=== PATIENT | female | born 1990 | race Caucasian/White ===

== ENCOUNTER 2017-12-29 01:12 | Observation (INO) ==
[2017-12-29] MEDS ORDERED: Naloxone 0.4 MG/ML INJ IVP PRN (03:51)
[2017-12-29] MEDS ORDERED: Ondansetron 4 MG/2 ML VIAL IVP PRN (03:51)
[2017-12-29] MEDS ORDERED: MOM Conc 10 ML UD.LIQ PO PRN (03:51)
--- NOTE | 2017-12-29 04:44 | Internal Med History&Physical ---
Date of Encounter: 12/29/17 Time of Encounter: 04:00 Assessment and Plan (1) Acute right-sided weakness Current visit: Yes Status: Acute Will place the pt into Tele for observation Her Rt side weakness seems more like conversion disorder however with her significant FH of CVA at early age ( brother had CVA in 30's ) so definitely need to r/o CVA Reviewed her CT of Head from other ER- no acute ICH noticed Reviewed her labs - WBC 7.9 Hb 13.7, Na; 138 K+- 3.7 BUN/Cr - 16/1.03 UDS - negative will start her on ASA 81mg will get a MRI of Brain Check FLP in AM PT / OT eval ordered (2) Conversion disorder Current visit: Yes Status: Acute She does mention about los of stress at home Resumed her home psych meds If MRI of Head - negative, she needs to be evaluated by behavioral therapy coordinator as an out pt (3) Anxiety Current visit: Yes Status: Acute resume home meds - Zoloft (4) Depression Current visit: Yes Status: Acute Qualifiers: Depression Type: other depression Qualified Code(s): F32.89 - Other specified depressive episodes Internal Medicine - H&P: HPI Chief complaint: Rt side weakness Admitted From: Emergency Dept Plans for Post Hospital Care: Home History of present illness: Ms. Velásquez is a 27 year old female with known PMH of Anxiety, Depression who presented to [facility] ER with Rt face numbness started at 9.30PM last night while she was driving back home from [place] after visiting her brother. Few minutes later pt noticed weakness in Rt arm and Rt leg, she was unable press gas , however she managed to go her father's home. Pt did mention that initially she thought it was because of anxiety / stress, however since her symptoms persisted for longer duration she went to [facility] ER. There she had further work up done, CT of head negative for any acute ICH, and her symptoms also non consistent with stroke, they reached out to [facility] neurologist, who did not suggest any tPA. Pt was transferred here for further work up. When I examined her she is still c/o Rt arm and leg weakness, however Rt face numbness improved. Past Med Surg Social Fam HX - Past Medical History Medical history: other Psychiatric history: anxiety, depression - Past Surgical History Surgical History: other - Social History Smoking Status: Former smoker Smokeless Tobacco Status: No Alcohol use: none Drug use: none - Family History Mother Living Status: Still Living Hx Family Cardiac Disorders: Yes (HTN) Hx Family Neurologic Disorders: Yes (brain aneursym) Father Living Status: Still Living Hx Family Cardiac Disorders: Yes (CHF, HTN) Hx Family Endocrine Disorder: Yes (DM) Hx Family Neurologic Disorders: Yes (CVA) Brother Age: 34 Hx Family Neurologic Disorders: Yes (TIA, CVA) Internal Medicine - H&P: Meds Sertraline [Zoloft] 50 mg PO DAILY 12/29/17 [History] Spironolactone [Aldactone] 100 mg PO DAILY 12/29/17 [History] clonazePAM [Clonazepam] 0.5 mg PO BID 12/29/17 [History] 3 Allergy/AdvReac Type Severity Reaction Status Date / Time Amoxicillin Allergy Hives Verified 03/14/17 18:42 Penicillins Allergy Anaphylaxis Verified 03/14/17 18:42 All Systems PM: A 10-system review of systems was performed and is negative for pertinent findings except as documented above in the HPI. Review of systems: All the systems are reviewed everything is benign except the systems and symptoms I mentioned in the history of present illness - Constitutional Vitals: Temp Pulse Resp BP Pulse Ox 98.3 F 64 16 110/69 99 12/29/17 04:03 12/29/17 04:03 12/29/17 04:03 12/29/17 04:03 12/29/17 04:03 General appearance: Present: cooperative, A&O X 3, answers questions appropriately - Head Head exam: Present: atraumatic, normal inspection - Neck Neck exam general surgery: Present: supple - Respiratory Respiratory exam: Present: CTAB. Absent: rales, respiratory distress, rhonchi, wheezes - Cardiovascular Cardiovascular exam: Present: RRR, +S1, +S2. Absent: diastolic murmur, gallop, rubs, systolic murmur - GI/Abdominal GI/Abdominal exam: Present: soft. Absent: rebound, rigid, tenderness - Extremities Exam Extremities exam: Absent: calf tenderness, pedal edema, tenderness - Back Exam Back exam: Absent: CVA tenderness (L), CVA tenderness (R) - Neurological Exam Neurological exam: Present: alert, CN II-XII intact, motor sensory deficit (She does have significant weakness in Rt arm and Rt leg..however her physical exam findings are inconsistent..), oriented X3. Absent: facial droop, speech deficit - Psychiatric Psychiatric exam: Present: depressed - Skin Skin exam: Absent: rash
[2017-12-29 05:26] LABS: Basophils # 0.1 K/mcL (0.0-0.2); Basophils % 0.7 %; Eosinophils # 0.3 K/mcL (0.0-0.6); Eosinophils % 3.8 %; Hematocrit 37.6 % (35.3-44.9); Hemoglobin 13.3 g/dL (11.5-15.4); Immature Granulocytes % 0.6 % (0-4); Lymphocytes # 2.6 K/mcL (0.6-4.6); Lymphocytes % 37.7 %; Mean Corpuscular HGB Conc 35.4 g/dL (31.6-35.5); Mean Corpuscular Hemoglobin 30.6 pg (28.0-33.3); Mean Corpuscular Volume 86.4 fL (83.0-100.0); Monocytes # 0.5 K/mcL (0.0-1.3); Monocytes % 7.4 %; Neutrophils # 3.4 K/mcL (1.6-8.9); Platelet Count 256 K/mcL (140-400); Red Blood Count 4.35 M/mcL (3.82-4.97); Red Cell Distribution Width 12.6 % (11.5-14.5); Segmented Neutrophils % 49.8 %
[2017-12-29 05:52] LABS: BUN/Creatinine Ratio 18 (6-26); Blood Urea Nitrogen 14 mg/dL (6-20); Calcium 9.1 mg/dL (8.6-10.3); Carbon Dioxide 24 mEq/L (23-29); Chloride 108 mEq/L (98-107); Glucose 90 mg/dL (70-105); Osmolality,Calculated 288 (280-300); Potassium 3.9 mEq/L (3.5-5.1); Sodium 139 mEq/L (136-145); eGFR For African Americans > 60 (> 60); eGFR For Non-African Americans > 60 (> 60)
[2017-12-29] MEDS: Aspirin 81 MG TAB.CHEW PO SCH (08:38)
[2017-12-29] MEDS: Acetaminophen 325 MG TABLET PO PRN ×2 (10:02→20:29)
--- NOTE | 2017-12-29 17:29 | Event Note ---
Date of Encounter: 12/29/17 Time of Encounter: 17:25 Patient had a brain MRI secondary to right-sided weakness and numbness. Also dizziness and headache. Acute symptoms for 1 day duration, MRI report states no acute brain parenchymal abnormality, CT of the head from emergency room with no abnormality test is negative Lab work within normal limits except for chloride of 108 Check lipid panel in the a.m. PT/OT is recommending repeat rehabilitation as the patient will not lift her right leg or her arm She states she cannot control her arm but when dropped over her face she slowly lowers it so not to hit herself in the nose, she is also holding her foot up when she states she cannot control her leg. She is alert and oriented. She is not set up in community with a mental health clinic or psychiatrist We will observe overnight
[2017-12-29] MEDS: clonazePAM 0.5 MG TABLET PO SCH (22:36)
[2017-12-30] MEDS: clonazePAM 0.5 MG TABLET PO SCH ×2 (09:05→20:46)
[2017-12-30] MEDS: Aspirin 81 MG TAB.CHEW PO SCH (09:05)
[2017-12-30] MEDS: Acetaminophen 325 MG TABLET PO PRN ×2 (09:07→20:46)
--- NOTE | 2017-12-30 11:15 | Internal Med Progress Note ---
<Ricardo Hernandez - Last Filed: 12/30/17 11:12> Date of Encounter: 12/30/17 Time of Encounter: 11:13 - Assessment and plan (1) Acute right-sided weakness Current Visit: Yes Status: Acute Assessment and plan: 27-year-old female with no significant history of clotting or previous strokelike symptoms presented with right-sided weakness and right-sided facial weakness. Neurologic exam is not consistent with strokelike symptoms. CT of head negative for any acute ICH, and her symptoms also non consistent with stroke, they reached out to [facility] neurologist, who did not suggest any tPA. MRI negative for any acute parenchymal abnormalities. - Likelihood of stroke is lower compared to conversion disorder versus underlying psychologic involvement. Plan: - Physical therapy/occupational therapy - Speech for swallow eval - Psychiatry consult (2) Conversion disorder Current Visit: Yes Status: Acute Assessment and plan: Or concerning for conversion disorder. Patient has significant stressors at home. - Continue home psych medications - MRI of the head negative - We will need psychiatry evaluation. - Subjective Interval history: Ms. Velásquez 27 -year-old female seen and evaluated patient bedside is 20. She is alert awake interactive and sitting up at bedside to work with physical therapy. She denies any pain but does have tingling into her right upper and lower extremity and says that she feels weak on her right side. She states that she started having right-sided facial weakness and numbness while driving that progressed into right lower extremity and right upper extremity weakness and numbness and tingling. She denies any significant medical history of clotting, denies smoking, or current control. She does have 1 daughter and had one miscarriage several months ago. She denies any new changes since her initial event the other day. - Constitutional Vitals: Temp Pulse Resp BP Pulse Ox 97.6 F 62 18 103/69 97 12/30/17 07:17 12/30/17 07:17 12/30/17 07:17 12/30/17 07:17 12/30/17 07:17 General appearance: Present: cooperative, A&O X 3, answers questions appropriately Exam: General: Patient alert, awake, oriented 3, interactive, in no acute distress HEENT: Normocephalic, atraumatic, pupils equal reactive to light, nasal cavity patent and open septum median position, oral mucosa moist, uvula midline, neck supple trachea midline no palpable lymphadenopathy, no thyromegaly. Chest: Symmetric bilateral correlating with respiratory effort, effort nonlabored. Cardiac: Regular rate and rhythm, positive S1 and S2. no bruits appreciated bilateral carotids, Radial pulses 2+ bilateral, posterior tibial and dorsal pedal pulses 2+ bilateral. Respiratory: Clear to auscultation all lung srivastava Abdomen: Soft, nontender, positive bowel sounds, no palpable masses appreciated on examination Extremities: Symmetric bilateral, bilateral lower extremities without erythema or edema . Patient has full range of motion movements with 5 out of 5 muscle strength in left upper and left lower extremity, patient's is demonstrating weakness in her right upper extremity and right lower extremity bypass the exam is not consistent. Neurologic: No focal deficits appreciated on examination. Cranial nerves II through XII intact, reflexes in biceps triceps and patellar and Achilles 2/4 bl. Face symmetric. Internal Medicine: Result - Labs CBC & Chem 7: 12/29/17 04:49 12/29/17 04:49 - Impressions Impressions Brain MRI 12/29/17 09:08 IMPRESSION: No acute brain parenchymal abnormality. D/ / 12/29/2017 14:07:26 Shawna Dhaliwal MD / [facility] Interpreting Provider: Shawna Dhaliwal MD Consult Discharge Plan - Plan Referrals: NONE,PCP [Primary Care Provider] - <Austin Le - Last Filed: 12/30/17 18:47> Date of Encounter: 12/30/17 - Assessment and plan (1) Conversion disorder with motor symptom or deficit Current Visit: Yes Status: Suspected (2) Depression Current Visit: Yes Status: Acute Qualifiers: Depression Type: other depression Qualified Code(s): F32.89 - Other specified depressive episodes (3) Acute right-sided weakness Current Visit: Yes Status: Acute (4) Anxiety Current Visit: Yes Status: Acute - Constitutional Vitals: Temp Pulse Resp BP Pulse Ox 98.6 F 70 16 113/75 97 12/30/17 15:27 12/30/17 15:27 12/30/17 15:27 12/30/17 15:27 12/30/17 15:27 Internal Medicine: Result - Labs CBC & Chem 7: 12/29/17 04:49 12/29/17 04:49 - Attending Attestation I examined this patient and my medical decision-making was reviewed with the Resident Physician on 12/30/17. I agree with the documented findings, disposition and treatment plan as described except to the extent set forth below. Ms Andrews is currently in observation for R side weakness. Rehab has been recommended. Ms Velásquez is feeling OK. No new issues. No fever or chills. Exam alert Comfortable Mucus membranes dry Heart reg Lungs clear I/P 1. R side weakness 2. Conversion Further diagnoses and plan as above.
[2017-12-30] MEDS ORDERED: Saline Nasal Spray 44 ML BOTTLE NS PRN (21:44)
[2017-12-31] MEDS: clonazePAM 0.5 MG TABLET PO SCH ×2 (08:36→20:20)
[2017-12-31] MEDS: Aspirin 81 MG TAB.CHEW PO SCH (08:36)
--- NOTE | 2017-12-31 08:41 | Internal Med Progress Note ---
<Ricardo Hernandez - Last Filed: 12/31/17 10:24> Date of Encounter: 12/31/17 Time of Encounter: 08:41 - Assessment and plan (1) Acute right-sided weakness Current Visit: Yes Status: Acute Assessment and plan: 27-year-old female with no significant history of clotting or previous strokelike symptoms presented with right-sided weakness and right-sided facial weakness. Neurologic exam is not consistent with strokelike symptoms. CT of head negative for any acute ICH, and her symptoms also non consistent with stroke, they reached out to [facility] neurologist, who did not suggest any tPA. MRI negative for any acute parenchymal abnormalities. - Likelihood of stroke is lower compared to conversion disorder versus underlying psychologic involvement. 12/31: No change in symptoms, patient says she feels like she has more strength in her right arm. She does discuss numerous stresses including her sick brother and her miscarriage in August. Now she is concerned she will lose her job here at [employer] since she has been employed less than a year. Plan: - Physical therapy/occupational therapy - Speech for swallow evaluation - Psychiatry in the outpatient setting. - PT recommends inpatient rehab (2) Conversion disorder Current Visit: Yes Status: Suspected Assessment and plan: Exam and work up concerning for conversion disorder. Patient has significant stresses at home that may be contributing to her current situation. - Continue home psych medications - MRI of the head negative - We will need psychiatry evaluation. - Subjective Interval history: Ms. Velásquez 27 -year-old female seen and evaluated patient bedside is 20. She is alert awake interactive in no acute distress eating breakfast with her left hand. She says that the weakness in her right upper extremity is slightly improved today but not back to her baseline. She opened up about multiple stress factors in her life that may be contributing to her current situation. She is concerned about loosing her job and how her new symptoms will affect her ability to be functional at home. - Constitutional Vitals: Temp Pulse Resp BP Pulse Ox 97.9 F 65 16 110/69 97 12/31/17 07:13 12/31/17 07:13 12/31/17 07:13 12/31/17 07:13 12/31/17 07:13 General appearance: Present: cooperative, A&O X 3, answers questions appropriately Exam: General: Patient alert, awake, oriented 3, interactive, in no acute distress HEENT: Normocephalic, atraumatic, pupils equal reactive to light, nasal cavity patent and open septum median position, oral mucosa moist, uvula midline, neck supple trachea midline no palpable lymphadenopathy, no thyromegaly. Chest: Symmetric bilateral correlating with respiratory effort, effort nonlabored. Cardiac: Regular rate and rhythm, positive S1 and S2. no bruits appreciated bilateral carotids, Radial pulses 2+ bilateral, posterior tibial and dorsal pedal pulses 2+ bilateral. Respiratory: Clear to auscultation all lung srivastava Abdomen: Soft, nontender, positive bowel sounds, no palpable masses appreciated on examination Extremities: Symmetric bilateral, bilateral lower extremities without erythema or edema . Patient has full range of motion movements with 5 out of 5 muscle strength in left upper and left lower extremity, patient's is demonstrating weakness in her right upper extremity and right lower extremity bypass the exam is not consistent. Neurologic: No focal deficits appreciated on examination. Cranial nerves II through XII intact, reflexes in biceps triceps and patellar and Achilles 2/4 bl. Face symmetric. Internal Medicine: Result - Labs CBC & Chem 7: 12/29/17 04:49 12/29/17 04:49 Consult Discharge Plan - Plan Referrals: NONE,PCP [Primary Care Provider] - <Austin Le - Last Filed: 12/31/17 17:30> Date of Encounter: 12/31/17 - Assessment and plan (1) Conversion disorder with motor symptom or deficit Current Visit: Yes Status: Suspected (2) Acute right-sided weakness Current Visit: Yes Status: Acute (3) Depression Current Visit: Yes Status: Acute Qualifiers: Depression Type: other depression Qualified Code(s): F32.89 - Other specified depressive episodes (4) Anxiety Current Visit: Yes Status: Chronic - Constitutional Vitals: Temp Pulse Resp BP Pulse Ox 98.2 F 87 17 131/83 97 12/31/17 15:30 12/31/17 15:30 12/31/17 15:30 12/31/17 15:30 12/31/17 15:30 Internal Medicine: Result - Labs CBC & Chem 7: 12/29/17 04:49 12/29/17 04:49 - Attending Attestation I examined this patient and my medical decision-making was reviewed with the Resident Physician on 2/11/18. I agree with the documented findings, disposition and treatment plan as described except to the extent set forth below. Ms Velásquez is currently admitted for acute R side weakness. Rehab has been recommended. Exam Alert. Comfortable Mucus membranes dry Heart reg No wheeze abd soft Still with decreased movement R arm and leg I/P 1. R side weakness - check C spine MRI 2. Probable conversion disorder Further diagnoses and plan as above.
[2017-12-31] MEDS: Acetaminophen 325 MG TABLET PO PRN ×2 (10:58→20:20)
[2018-01-01] MEDS: clonazePAM 0.5 MG TABLET PO SCH ×2 (11:03→20:49)
[2018-01-01] MEDS: Aspirin 81 MG TAB.CHEW PO SCH (11:03)
[2018-01-01] MEDS: Acetaminophen 325 MG TABLET PO PRN ×2 (11:07→20:49)
--- NOTE | 2018-01-01 13:51 | Discharge Summary ---
<Irwin Tate - Last Filed: 01/01/18 13:47> Date of Encounter: 01/01/18 Time of Encounter: 13:47 - Discharge Diagnosis (1) Conversion disorder Priority: Primary Status: Suspected (2) Anxiety Priority: Secondary Status: Chronic (3) Depression Priority: Secondary Status: Chronic Qualifiers: Depression Type: other depression Qualified Code(s): F32.89 - Other specified depressive episodes - Discharge Medications Prescriptions: clonazePAM [Clonazepam] 0.5 mg PO BID 5 Days #10 tab.rapdis Home Medications: Sertraline [Zoloft] 50 mg PO DAILY 12/29/17 [History] Spironolactone [Aldactone] 100 mg PO DAILY 12/29/17 [History] clonazePAM [Clonazepam] 0.5 mg PO BID 5 Days #10 tab.rapdis 01/01/18 [Rx] Allergies/Adverse Reactions: 3 Allergy/AdvReac Type Severity Reaction Status Date / Time Amoxicillin Allergy Hives Verified 03/14/17 18:42 Penicillins Allergy Anaphylaxis Verified 03/14/17 18:42 promethazine [From Phenergan] AdvReac See Verified 12/29/17 05:45 Comments Procedures/tests Complete & Pending: Procedures Performed prior 72 hours Category Date Time Status MR cervical spine wo con [MR] Routine MRI 01/01/18 11:10 Draft Date of admission: 12/29/17 03:48 Primary care physician: PCP NONE Consults: 12/29/17 03:48 Consult to Occupational Therapy [CONS] Routine Comment: Evaluate, develop and implement POC Reason for Consult: Rt side weakness Consult to Physical Therapy [CONS] Routine Comment: Evaluate, develop and implement POC Reason for Consult: Rt side weakness 12/29/17 14:32 Consult to Cell Technician [CONS] Routine Reason for SW Consult: PT/OT recommend inpt rehab/swing Discharging clinician: Irwin Tate Anticipated date of discharge: 01/01/18 - Patient Status Disposition: Home, Self-Care Functional capacity at discharge: uses cane/walker Overall status at discharge: patient is progressing back to baseline - Discharge Instructions Follow Up With: NONE,PCP [Primary Care Provider] - (within 1 week) Psychiatry [facility] [Provider Group] (as soon as possible) Additional Instructions: Please follow up with a PCP within one week. Please follow up with psychiatry as scheduled. Please resume your home medications. Please followed participate in rehabilitation as instructed by physical therapy. Please return for any new or worsening symptoms. - Diet and Activity Activity: as per physical therapy, resume usual activities as tolerated Diet: advance to your usual diet Interval History: Patient seen and examined at the bedside. Patient reports continued right arm weakness and right leg weakness. She feels that these are stable, slowly getting worse but no numbness or any getting better. At the time of my exam she was tearful about her current situation and what may happen to her job and her children. She has no new complaints at this time. Hospital course: Ms. Velásquez is a 27 year old female with history of anxiety and depression presents with right arm and leg weakness. The symptoms were acute onset nature. Patient underwent brain MRI as well as cervical spine MRI that were negative for any acute or chronic findings and explain the patient's symptoms. Patient has underlying depression and anxiety and given her negative workup this was felt to be related to conversion disorder. Patient was evaluated by physical therapy who recommended swing bed/inpatient rehabilitation. She will be discharged as stable condition with psychiatry follow-up. - Time Spent with Patient Total time spent providing and/or coordinating discharge services: - Constitutional Vitals: Temp Pulse Resp BP Pulse Ox 97.3 F L 80 17 100/65 98 01/01/18 12:23 01/01/18 12:23 01/01/18 12:23 01/01/18 12:23 01/01/18 12:23 General appearance: Present: cooperative, A&O X 3, answers questions appropriately - Respiratory Respiratory exam: Present: CTAB. Absent: rales, rhonchi, wheezes - Cardiovascular Cardiovascular exam: Present: RRR. Absent: gallop, rubs, systolic murmur - Neurological Exam Additional comments: 3 out of 5 strength in the right upper and right lower extremity. Right upper and lower extremity tingling present - Psychiatric Psychiatric exam: Present: depressed (Tearful) <Austin Le - Last Filed: 01/01/18 17:07> Date of Encounter: 01/01/18 - Discharge Diagnosis (1) Conversion disorder with motor symptom or deficit Priority: Primary Status: Suspected (2) Acute right-sided weakness Priority: Secondary Status: Acute (3) Depression Status: Chronic Qualifiers: Depression Type: other depression Qualified Code(s): F32.89 - Other specified depressive episodes (4) Anxiety Status: Chronic Procedures/tests Complete & Pending: Procedures Performed prior 72 hours Category Date Time Status MR cervical spine wo con [MR] Routine MRI 01/01/18 11:10 Completed Date of admission: 12/29/17 03:48 Primary care physician: PCP NONE Consults: 12/29/17 03:48 Consult to Occupational Therapy [CONS] Routine Comment: Evaluate, develop and implement POC Reason for Consult: Rt side weakness Consult to Physical Therapy [CONS] Routine Comment: Evaluate, develop and implement POC Reason for Consult: Rt side weakness 12/29/17 14:32 Consult to Cell Technician [CONS] Routine Reason for SW Consult: PT/OT recommend inpt rehab/swing Hospital course: Ms. Velásquez is a 27 year old female - Time Spent with Patient Total time spent providing and/or coordinating discharge services: 29min - Constitutional Vitals: Temp Pulse Resp BP Pulse Ox 98.3 F 78 18 118/72 99 01/01/18 16:30 01/01/18 16:30 01/01/18 16:30 01/01/18 16:30 01/01/18 16:30 - Attending Attestation I examined this patient and my medical decision-making was reviewed with the Resident Physician on 01/01/18. I agree with the documented findings, disposition and treatment plan as described except to the extent set forth below. Ms Velásquez has been admitted for R arm and R leg weakness. MRI of head and C spine are negative. Further neuro workup also negative. Weakness persists. Rehab/swing bed recommended. Exam alert Comfortable Mucus membranes dry Heart reg No wheeze R side persistent weak. Plan D/C to rehab when arranged.
--- NOTE | 2018-01-01 17:09 | Physician Discharge Referral ---
ExtendedCare Referral Info Provider in Charge after Transfer: PCP Institutional Level of Care: Skilled - Diagnosis (1) Conversion disorder with motor symptom or deficit Priority: Primary Status: Suspected (2) Acute right-sided weakness Priority: Primary Status: Acute (3) Depression Priority: Secondary Status: Chronic (4) Anxiety Priority: Secondary Status: Chronic Expected Duration of Placement: Less than 30 days Prognosis: Good Aware of Diagnosis: Patient Aware of Prognosis: Patient - Transfer Medications Prescriptions: clonazePAM [Clonazepam] 0.5 mg PO BID 5 Days #10 tab.rapdis Home Medications: Sertraline [Zoloft] 50 mg PO DAILY 12/29/17 [History] Spironolactone [Aldactone] 100 mg PO DAILY 12/29/17 [History] clonazePAM [Clonazepam] 0.5 mg PO BID 5 Days #10 tab.rapdis 01/01/18 [Rx] Allergies/Adverse Reactions: 3 Allergy/AdvReac Type Severity Reaction Status Date / Time Amoxicillin Allergy Hives Verified 03/14/17 18:42 Penicillins Allergy Anaphylaxis Verified 03/14/17 18:42 promethazine [From Phenergan] AdvReac See Verified 12/29/17 05:45 Comments - Respiratory Orders Smoking Cessation: Smoking cessation has been advised. For more information, call the [place] Tobacco Quit Line at 2-496-ABLFNOW. - Lab Orders Lab Orders: 2 Step Mantoux Test per State regulation - Ancillary Orders May use pressure relief devices daily prn, May consult with Dentist, Computer Operations Analyst, Direct Support Professional PRN - Advance Directives Code Status: Full Code - Mobility Orders Ambulate - Rehabiliation Orders Rehab Orders: Evaluation for Physical Therapy, Evaluation for Occupational Therapy - Treatments Skin tear care topically daily PRN per policy, May check for fecal impaction rectally daily PRN, Fleet enema rectally every other day PRN cleansing purposes - Diet Orders Regular CERTIFICATION: I certify that the transfer of the above named patient to an Extended Care Facility is necessary for the continuing treatment of the diagnosis listed. The above information is true and accurate reflection of patient's current condition. Confidential - Redisclosure prohibited without a patient's written consent.
[2018-01-02] MEDS: *HR* HYDROcodone/Acet 5/325 mg TABLET PO PRN ×3 (00:04→21:23)
[2018-01-02] MEDS: Aspirin 81 MG TAB.CHEW PO SCH (09:40)
[2018-01-02] MEDS: clonazePAM 0.5 MG TABLET PO SCH ×2 (09:40→21:23)
[2018-01-02] MEDS: Acetaminophen 325 MG TABLET PO PRN (09:58)
--- NOTE | 2018-01-02 12:43 | Internal Med Progress Note ---
Date of Encounter: 01/02/18 Time of Encounter: 12:40 - Assessment and plan (1) Acute right-sided weakness Current Visit: Yes Status: Acute Assessment and plan: Patient is recommended for inpatient rehabilitation presently waiting for placement at [facility] in [place]. Continue with physical therapy and occupational therapy-vision feels she has more strength in her right arm continues to have weakness in right lower leg. No past significant history of clotting or previous strokes she presented with right-sided weakness right-sided facial weakness. Neurological exam is not consistent with stroke symptoms CT of head was negative for any acute ICH ER did speak with [facility] neurologist who did not suggest a TPA MRI was negative for any abnormalities. Patient has been under a lot of stress including a recent miscarriage sick brother-suspect this is more conversion disorder most likely stroke Patiently to follow up with psychiatry as outpatient (2) Conversion disorder Current Visit: Yes Status: Suspected Assessment and plan: She has had significant stressors at home which may be contributing to her current situation We will continue with home psych medications MRI of head is negative Continue with outpatient psych evaluation follow-up - Time Spent With Patient less than 15 minutes - Subjective Interval history: Presently denies any pain or discomfort, she continues to have numbness and tingling to R arm however she feels it has improve some. Also cont to have weakness to R side,feels that her R arm has improved in strength. She mainly use L hand to retrieve items. Awaiting acceptance to [facility] in [place]. Discussed follow up with psych as outpatient which she agreed, she expressed that she has had depression for sometime and feels she would benefit from psych counseling - Constitutional Vitals: Temp Pulse Resp BP Pulse Ox 98.1 F 66 18 115/73 97 01/02/18 11:28 01/02/18 11:28 01/02/18 11:28 01/02/18 11:28 01/02/18 11:28 General appearance: Present: cooperative, A&O X 3, answers questions appropriately - Head Head exam: Present: atraumatic, normocephalic - Eye Eye exam: Present: PERRL, conjuntiva pink, sclera anicteric Pupils: Present: PERRL - Neck Neck exam general surgery: Present: supple, trachea midline. Absent: lymphadenopathy - Respiratory Respiratory exam: Present: CTAB. Absent: accessory muscle use, rales, rhonchi, wheezes - Cardiovascular Cardiovascular exam: Present: RRR, +S1, +S2. Absent: diastolic murmur, gallop, rubs, systolic murmur - GI/Abdominal GI/Abdominal exam: Present: normal bowel sounds, soft, no peritoneal signs. Absent: distended, tenderness - Extremities Exam Extremities exam: Present: warm, radial pulses palpable and symmetrical. Absent : calf tenderness, cyanotic, pedal edema - Expanded Upper Extremities Exam Hand wrist exam: Present: swelling - Neurological Exam Neurological exam: Present: CN II-XII intact, oriented X3, no focal deficits. Absent: pronater drift, facial droop, speech deficit Additional comments: R arm and hand weakness 3/5 R leg weakness 3/5 - Skin Skin exam: Present: dry, intact Internal Medicine: Result - Labs CBC & Chem 7: 12/29/17 04:49 12/29/17 04:49 - Impressions Impressions Cervical Spine MRI 01/01/18 11:10 IMPRESSION: Normal MRI of the cervical spine without findings to explain the patient's right upper extremity tingling and weakness. D/ / 01/01/2018 11:03:25 Bobby Gutierrez MD / bcarter Interpreting Provider: Bobby Gutierrez MD Consult Discharge Plan - Plan Additional Instructions: Please follow up with a PCP within one week. Please follow up with psychiatry as scheduled. Please resume your home medications. Please followed participate in rehabilitation as instructed by physical therapy. Please return for any new or worsening symptoms. Referrals: Psychiatry [facility] [Provider Group] (as soon as possible) NONE,PCP [Primary Care Provider] - (within 1 week) Prescriptions: clonazePAM [Clonazepam] 0.5 mg PO BID 5 Days #10 tab.rapdis
[2018-01-03] MEDS: Aspirin 81 MG TAB.CHEW PO SCH (08:41)
[2018-01-03] MEDS: clonazePAM 0.5 MG TABLET PO SCH ×2 (08:41→20:56)
--- NOTE | 2018-01-03 09:47 | Internal Med Progress Note ---
Date of Encounter: 01/03/18 Time of Encounter: 09:46 - Assessment and plan (1) Acute right-sided weakness Current Visit: Yes Status: Acute Assessment and plan: Patient is recommended for inpatient rehabilitation presently waiting for placement at [facility] in [place]. Continue with physical therapy and occupational therapy- Patiently to follow up with psychiatry as outpatient-suspect conversion disorder (2) Conversion disorder Current Visit: Yes Status: Suspected Assessment and plan: She has had significant stressors at home which may be contributing to her current situation We will continue with home psych medications MRI of head is negative Continue with outpatient psych evaluation follow-up - Subjective Interval history: Presently denies any pain or discomfort, she continues to have numbness and tingling to R arm however she feels it has improve some. Awaiting acceptance to [facility] in [place]. - Constitutional Vitals: Temp Pulse Resp BP Pulse Ox 97.9 F 68 16 108/72 98 01/03/18 07:14 01/03/18 07:14 01/03/18 07:14 01/03/18 07:14 01/03/18 07:14 General appearance: Present: cooperative, A&O X 3, answers questions appropriately - Head Head exam: Present: atraumatic, normocephalic - Eye Eye exam: Present: PERRL, conjuntiva pink, sclera anicteric Pupils: Present: PERRL - Neck Neck exam general surgery: Present: supple, trachea midline. Absent: lymphadenopathy - Respiratory Respiratory exam: Present: CTAB. Absent: accessory muscle use, rales, rhonchi, wheezes - Cardiovascular Cardiovascular exam: Present: RRR, +S1, +S2. Absent: diastolic murmur, gallop, rubs, systolic murmur - GI/Abdominal GI/Abdominal exam: Present: normal bowel sounds, soft, no peritoneal signs. Absent: distended, tenderness - Extremities Exam Extremities exam: Present: warm, radial pulses palpable and symmetrical. Absent : calf tenderness, cyanotic, pedal edema - Neurological Exam Neurological exam: Present: CN II-XII intact, oriented X3, no focal deficits. Absent: pronater drift, facial droop, speech deficit Additional comments: weakness to R arm and R leg - Skin Skin exam: Present: dry, intact Internal Medicine: Result - Labs CBC & Chem 7: 12/29/17 04:49 12/29/17 04:49 Consult Discharge Plan - Plan Additional Instructions: Please follow up with a PCP within one week. Please follow up with psychiatry as scheduled. Please resume your home medications. Please followed participate in rehabilitation as instructed by physical therapy. Please return for any new or worsening symptoms. Referrals: Psychiatry [facility] [Provider Group] (as soon as possible) NONE,PCP [Primary Care Provider] - (within 1 week) Prescriptions: clonazePAM [Clonazepam] 0.5 mg PO BID 5 Days #10 tab.rapdis
[2018-01-03] MEDS: *HR* HYDROcodone/Acet 5/325 mg TABLET PO PRN (20:56)
[2018-01-04] MEDS: clonazePAM 0.5 MG TABLET PO SCH ×2 (09:31→20:44)
[2018-01-04] MEDS: Aspirin 81 MG TAB.CHEW PO SCH (09:31)
[2018-01-04] MEDS: Acetaminophen 325 MG TABLET PO PRN ×2 (09:33→15:35)
--- NOTE | 2018-01-04 09:46 | Internal Med Progress Note ---
Date of Encounter: 01/04/18 Time of Encounter: 09:45 - Assessment and plan (1) Acute right-sided weakness Current Visit: Yes Status: Acute Assessment and plan: Patient is recommended for inpatient rehabilitation presently waiting for placement at [facility] in [place]. Continue with physical therapy and occupational therapy- Patient to follow up with psychiatry as outpatient-suspect conversion disorder (2) Conversion disorder Current Visit: Yes Status: Suspected Assessment and plan: She has had significant stressors at home which may be contributing to her current situation We will continue with home psych medications MRI of head is negative Continue with outpatient psych evaluation follow-up - Time Spent With Patient less than 15 minutes - Subjective Interval history: Presently denies any pain or discomfort, she continues to have numbness and tingling to R arm however she feels it has improve some. Awaiting for insurance acceptance to [facility] in [place]. - Constitutional Vitals: Temp Pulse Resp BP Pulse Ox 98.1 F 59 16 110/71 97 01/04/18 06:53 01/04/18 06:53 01/04/18 06:53 01/04/18 06:53 01/04/18 06:53 General appearance: Present: cooperative, A&O X 3, answers questions appropriately - Head Head exam: Present: atraumatic, normocephalic - Eye Eye exam: Present: PERRL, conjuntiva pink, sclera anicteric Pupils: Present: PERRL - Neck Neck exam general surgery: Present: supple, trachea midline. Absent: lymphadenopathy - Respiratory Respiratory exam: Present: CTAB. Absent: accessory muscle use, rales, rhonchi, wheezes - Cardiovascular Cardiovascular exam: Present: RRR, +S1, +S2. Absent: diastolic murmur, gallop, rubs, systolic murmur - GI/Abdominal GI/Abdominal exam: Present: normal bowel sounds, soft, no peritoneal signs. Absent: distended, tenderness - Extremities Exam Extremities exam: Present: warm, radial pulses palpable and symmetrical. Absent : calf tenderness, cyanotic, pedal edema - Neurological Exam Neurological exam: Present: CN II-XII intact, oriented X3, no focal deficits. Absent: pronater drift, facial droop, speech deficit - Skin Skin exam: Present: dry, intact Internal Medicine: Result - Labs CBC & Chem 7: 12/29/17 04:49 12/29/17 04:49 Consult Discharge Plan - Plan Additional Instructions: Please follow up with a PCP within one week. Please follow up with psychiatry as scheduled. Please resume your home medications. Please followed participate in rehabilitation as instructed by physical therapy. Please return for any new or worsening symptoms. Referrals: Psychiatry [facility] [Provider Group] (as soon as possible) NONE,PCP [Primary Care Provider] - (within 1 week) Prescriptions: clonazePAM [Clonazepam] 0.5 mg PO BID 5 Days #10 tab.rapdis
[2018-01-04] MEDS: *HR* HYDROcodone/Acet 5/325 mg TABLET PO PRN (22:40)
[2018-01-05] MEDS: Acetaminophen 325 MG TABLET PO PRN (08:24)
[2018-01-05] MEDS: clonazePAM 0.5 MG TABLET PO SCH (08:25)
[2018-01-05] MEDS: Aspirin 81 MG TAB.CHEW PO SCH (08:25)
[2018-01-05 11:42] VITALS: BP 116/67
--- NOTE | 2018-01-05 16:15 | Discharge Summary ---
Date of Encounter: 01/05/18 Time of Encounter: 16:15 - Discharge Diagnosis (1) Acute right-sided weakness Priority: Primary Status: Acute Comments: 1 patient continues to have right-sided weakness she was seen by physical therapy and occupational therapy recommended inpatient rehabilitation-[facility] she was to be placed and [place] at [facility] however she did not qualify-she will be discharged home with outpatient physical therapy She will need follow-up with her primary care physician as an outpatient (2) Conversion disorder Priority: Secondary Status: Suspected Comments: She has had significant stressors at home which may be contributing to her current situation We will continue with her home psychiatric medications She will need to follow-up with outpatient psych - Discharge Medications Prescriptions: clonazePAM [Clonazepam] 0.5 mg PO BID 5 Days #10 tab.rapdis Home Medications: Sertraline [Zoloft] 50 mg PO DAILY 12/29/17 [History] Spironolactone [Aldactone] 100 mg PO DAILY 12/29/17 [History] clonazePAM [Clonazepam] 0.5 mg PO BID 5 Days #10 tab.rapdis 01/01/18 [Rx] Allergies/Adverse Reactions: 3 Allergy/AdvReac Type Severity Reaction Status Date / Time Amoxicillin Allergy Hives Verified 03/14/17 18:42 Penicillins Allergy Anaphylaxis Verified 03/14/17 18:42 promethazine [From Phenergan] AdvReac See Verified 12/29/17 05:45 Comments Date of admission: 12/29/17 03:48 Primary care physician: PCP NONE Consults: 12/29/17 03:48 Consult to Occupational Therapy [CONS] Routine Comment: Evaluate, develop and implement POC Reason for Consult: Rt side weakness Consult to Physical Therapy [CONS] Routine Comment: Evaluate, develop and implement POC Reason for Consult: Rt side weakness 12/29/17 14:32 Consult to Line Appliance Assembler [CONS] Routine Reason for SW Consult: PT/OT recommend inpt rehab/swing Discharging clinician: Candice Rashid Anticipated date of discharge: 01/05/18 - Patient Status Disposition: Home, Self-Care Condition: Good Overall status at discharge: patient is progressing back to baseline - Discharge Instructions Instructions: Weakness (GEN), Anxiety (DC) Follow Up With: Psychiatry [facility] [Provider Group] (as soon as possible) Lexi Lorenzo, EXTRUSION MANAGER [Advanced Practice Nurse] - 01/15/18 10:00 am (You will be recieving a new patient packet in the mail, pleas fill it out and bring it to your appointment. Please bring your Photo ID, insurance card, and a list of any medications you are on. Please cancel your appointment 24 hours in advance if you can not make it. Thank you!) Additional Instructions: Please follow up with a PCP within one week. Please follow up with psychiatry as scheduled. Please resume your home medications. Please followed participate in rehabilitation as instructed by physical therapy. Please return for any new or worsening symptoms. - Diet and Activity Activity: ambulate only with your walker Diet: advance to your usual diet Interval History: Patient seen and examined at bedside. She continues to report right arm weakness however she feels that it is slowly improving. Right leg continues to be weak and she feels it is unchanged and has difficulty lifting it off the bed. She has been ambulating in the hallways and doing well with physical therapy. Initially she was to go to inpatient rehabilitation at [facility] however she has been declined due to insurance. She will continue therapy as an outpatient. Discussed with patient she is in agreement and will be discharged home today Hospital course: Ms. Velásquez is a 27 year old female past history of anxiety depression she presented with right arm and leg weakness. The symptoms were acute on onset, underwent brain MRI as well as cervical spine MRI that were negative for any acute or chronic findings. She does have a history of underlying depression and anxiety and has been under a lot of stress at home. Suspect this may be related to conversion disorder. She will follow up as outpatient with psychiatry and will also undergo outpatient physical therapy. Presently she is hemodynamically stable and is ready for discharge - Time Spent with Patient Total time spent providing and/or coordinating discharge services: - Constitutional Vitals: Temp Pulse Resp BP Pulse Ox 98.1 F 74 17 116/67 96 01/05/18 11:42 01/05/18 11:42 01/05/18 11:42 01/05/18 11:42 01/05/18 11:42 General appearance: Present: cooperative, A&O X 3, answers questions appropriately - Head Head exam: Present: atraumatic, normocephalic - Eye Eye exam: Present: PERRL, conjuntiva pink, sclera anicteric Pupils: Present: PERRL - Neck Neck exam general surgery: Present: supple, trachea midline. Absent: lymphadenopathy - Respiratory Respiratory exam: Present: CTAB. Absent: accessory muscle use, rales, rhonchi, wheezes - Cardiovascular Cardiovascular exam: Present: RRR, +S1, +S2. Absent: diastolic murmur, gallop, rubs, systolic murmur - GI/Abdominal GI/Abdominal exam: Present: normal bowel sounds, soft, no peritoneal signs. Absent: distended, tenderness - Extremities Exam Extremities exam: Present: warm, radial pulses palpable and symmetrical. Absent : calf tenderness, cyanotic, pedal edema - Neurological Exam Neurological exam: Present: CN II-XII intact, oriented X3, no focal deficits. Absent: pronater drift, facial droop, speech deficit - Skin Skin exam: Present: dry, intact
== END 2018-01-05 18:00 | disposition home or self-care (01) ==
LOC: 3BNU → SUATTDRO 03:48
PROVIDERS: ADMIT Family Medicine; ATTEND Internal Medicine